=== PATIENT | female | born 1985 | race Caucasian/White ===

== ENCOUNTER 2018-04-26 01:12 | Inpatient (IN) ==
[2018-04-26 01:35] LABS: Basophils % 0.4 %; Eosinophils # 0.1 K/mcL (0.0-0.6); Eosinophils % 1.4 %; Hematocrit 44.7 % (35.3-44.9); Hemoglobin 15.4 g/dL (11.5-15.4); Immature Granulocytes % 0.1 % (0-4); Lymphocytes # 3.2 K/mcL (0.6-4.6); Mean Corpuscular HGB Conc 34.5 g/dL (31.6-35.5); Mean Corpuscular Hemoglobin 31.3 pg (28.0-33.3); Mean Corpuscular Volume 90.9 fL (83.0-100.0); Mean Platelet Volume 9.2 fL (9.4-12.4); Monocytes # 0.8 K/mcL (0.0-1.3); Monocytes % 8.5 %; Platelet Count 275 K/mcL (140-400); Red Blood Count 4.92 M/mcL (3.82-4.97); Red Cell Distribution Width 12.2 % (11.5-14.5); Segmented Neutrophils % 54.6 %
[2018-04-26 01:55] LABS: Acetaminophen < 10 mcg/mL (10-20); BUN/Creatinine Ratio 16 (6-26); Blood Urea Nitrogen 14 mg/dL (6-20); Calcium 9.8 mg/dL (8.6-10.3); Carbon Dioxide 25 mEq/L (23-29); Chloride 110 mEq/L (98-107); Ethanol < 10 mg/dL (Less than 10); Glucose 143 mg/dL (70-105); Osmolality,Calculated 297 (280-300); Potassium 3.7 mEq/L (3.5-5.1); Salicylate < 2.5 mg/dL (15.0-30.0); Sodium 142 mEq/L (136-145); eGFR For African Americans > 60 (> 60); eGFR For Non-African Americans > 60 (> 60)
[2018-04-26 01:58] LABS: Bilirubin,Urine Negative (Negative); Blood,Urine Large (Negative); Clarity,Urine Clear (Clear); Color,Urine Yellow (Yellow); Glucose,Urine (UA) Normal (Normal); Ketones,Urine Negative (Negative); Leukocyte Esterase,Urine Small (Negative); Nitrite,Urine Negative (Negative); PH,Urine 5.5 pH Units (5.0-8.0); Protein,Urine Trace mg/dL (Neg-Trace); Specific Gravity,Urine 1.029 (1.010-1.025); Urobilinogen,Urine Normal (Normal)
[2018-04-26 02:00] LABS: Bacteria,Urine None Seen per hpf (None-Few); Hyaline Casts,Urine None Seen per lpf (None-Few); RBC,Urine 30-50 per hpf (0-3); Squamous Epithelial Cell,Urine Many per lpf (None-Few)
[2018-04-26] MEDS ORDERED: clonazePAM 0.5 MG TABLET PO ONE (02:05)
--- NOTE | 2018-04-26 02:11 | Emergency Department Note ---
Disposition Clinical Impression: Acute anxiety Depression Qualifiers: Depression Type: other depression Qualified Code(s): F32.89 - Other specified depressive episodes Disposition: Admitted As Inpatient Condition: Fair Psych HPI - General Chief Complaint: ED Psychiatric Symptoms Stated Complaint: SI Time Seen by Provider: 04/26/18 01:15 Source: patient, EMS Mode of arrival: EMS Limitations: no limitations Nursing Notes Reviewed: Yes Vital Signs Reviewed: Yes - History of Present Illness Pt complaint: suicidal ideation, feels depressed, anxiety If medical clearance, reason: psychiatric condition Onset (ago): day(s) Duration: getting worse History of similar episodes: Yes Improves with: none Worsens with: none Context: recent drug abuse, significant life stressor Alleged intoxication: No Associated Psychiatric Symptoms: depression, suicidal ideation, racing thoughts , anxiety Associated symptoms: Denies: confusion, headache, shortness of breath, nausea, vomiting, syncope, insomnia Traumatic symptoms: denies traumatic injury Treatments prior to arrival: none Self harm or harm to others: admits thoughts of self harm, denies having a plan - Related Data Home Medications Medication Instructions Recorded Confirmed ALPRAZolam [Xanax 1 MG Tablet] 1 mg PO QID 04/26/18 04/26/18 Amitriptyline [Elavil] 50 mg PO HS 04/26/18 04/26/18 Previous Rx's Medication Instructions Recorded Gabapentin [Neurontin] 300 mg PO TID #60 capsule 04/18/16 Allergies Allergy/AdvReac Type Severity Reaction Status Date / Time ketorolac [From Toradol] Allergy Shakiness Verified 08/16/17 19:00 cephalexin [From Keflex] AdvReac Nausea Verified 08/16/17 19:00 clavulanic acid AdvReac Vomiting Verified 08/16/17 19:00 [From Augmentin] sulfamethoxazole AdvReac Hives Verified 08/16/17 19:00 [From Bactrim] trimethoprim [From Bactrim] AdvReac Hives Verified 08/16/17 19:00 All systems ED: reviewed and negative except as stated. Review of Systems: As Per HPI Constitutional: Denies: fever, chills, weakness, weight change, night sweats Eyes: Denies: vision change Cardiovascular: Denies: chest pain, palpitations Respiratory: Denies: cough, dyspnea, wheezes Gastrointestinal: Denies: abdominal pain, nausea, vomiting Genitourinary: Denies: dysuria Musculoskeletal: Denies: back pain, neck pain, joint swelling, arthralgia, myalgia Integumentary: Denies: rash, pruritus Neurological: Denies: headache, weakness, numbness, paresthesias, confusion, abnormal gait, vertigo Psychiatric: Reports: as per HPI, anxiety, depression, suicidal thoughts Hematological/Lymphatic: Denies: easy bleeding, easy bruising Past Medical History - Past Medical History Attestation: Yes The following information was validated with the patient. Source: patient Medical history: Reports: kidney stones, migraine, other Psychiatric history: Reports: anxiety, depression, PTSD RIGGER THIRD history: Reports: bilateral tubal ligation LMP comments: current - Social History Smoking Status: Current every day smoker Smokeless Tobacco Status: No Alcohol use: Reports: occasionally Drug use: Reports: none Physical Exam - General Limitations: no limitations General appearance: alert, in no apparent distress, anxious - Head Head exam: atraumatic, normocephalic, normal inspection - Eye Eye exam: Present: normal appearance, PERRL. Absent: scleral icterus, conjunctival injection, nystagmus, miosis, mydriasis, periorbital swelling - ENT ENT exam: normal oropharynx, mucous membranes moist - Neck Neck exam: Present: normal inspection, full ROM, trachea midline. Absent: tenderness, meningismus, lymphadenopathy - Chest Chest inspection: Present: normal inspection - Respiratory Respiratory exam: Present: normal lung sounds bilaterally. Absent: respiratory distress, wheezes, stridor - Cardiovascular Cardiovascular exam: Present: regular rate, normal rhythm, normal heart sounds - Extremities Exam Extremities exam: Present: normal inspection, full ROM, normal capillary refill - Neurological Exam Neurological exam: Present: alert, oriented X3, CN II-XII intact, normal gait - Psychiatric Psychiatric exam: Present: normal affect, normal mood - Skin Skin exam: Present: warm, dry, intact, normal color Course Course Narrative: [facility] anxiety, depression and suicidal ideation. She has had several significant life stressors lately. She also recently relapsed and failed a drug test which further added to her anxiety and depression. She has been clean for over a week. She has no physical complaints at this time. She appears anxious and is tearful. She is afebrile, a and O 3, able to provide history and cooperative with the exam. Patient has been medically cleared for psychiatric evaluation. She has been evaluated by the one a nurse. The nurse consulted with the psychiatrist. They feel that the patient will need to be admitted for further evaluation and treatment. Vital Signs Temperature 98.1 F 04/26/18 01:17 Pulse Rate 100 04/26/18 01:17 Respiratory Rate 22 04/26/18 01:17 Blood Pressure 138/83 04/26/18 01:17 O2 Sat by Pulse Oximetry 95 04/26/18 01:17 Temperature 98.0 F 04/26/18 05:39 Pulse Rate 78 04/26/18 05:39 Respiratory Rate 16 04/26/18 05:39 Blood Pressure 102/72 04/26/18 05:39 O2 Sat by Pulse Oximetry 95 04/26/18 01:17 Oxygen Delivery Oxygen Delivery Room Air Psych - Lab Data Result diagrams: 04/26/18 01:25 04/26/18 01:25 Lab Results 04/26/18 04/26/18 04/26/18 Range/Units 01:25 01:25 01:50 WBC 9.2 (4.3-11.1) K/mcL RBC 4.92 (3.82-4.97) M/mcL Hgb 15.4 (11.5-15.4) g/dL Hct 44.7 (35.3-44.9) % MCV 90.9 (83.0-100.0) fL MCH 31.3 (28.0-33.3) pg MCHC 34.5 (31.6-35.5) g/dL RDW 12.2 (11.5-14.5) % Plt Count 275 (140-400) K/mcL MPV 9.2 L (9.4-12.4) fL Immature Gran % 0.1 (0-4) % Seg Neutrophils % 54.6 % Lymphocytes % 35.0 % Monocytes % 8.5 % Eosinophils % 1.4 % Basophils % 0.4 % Neutrophils # 5.0 (1.6-8.9) K/mcL Lymphocytes # 3.2 (0.6-4.6) K/mcL Monocytes # 0.8 (0.0-1.3) K/mcL Eosinophils # 0.1 (0.0-0.6) K/mcL Basophils # 0.0 (0.0-0.2) K/mcL Sodium 142 (136-145) mEq/L Potassium 3.7 (3.5-5.1) mEq/L Chloride 110 H (98-107) mEq/L Carbon Dioxide 25 (23-29) mEq/L BUN 14 (6-20) mg/dL Creatinine 0.89 (0.60-1.20) mg/dL Est GFR ( Amer) > 60 (> 60) Est GFR (Non-Af Amer) > 60 (> 60) BUN/Creatinine Ratio 16 (6-26) Glucose 143 H (70-105) mg/dL Calculated Osmolality 297 (280-300) Calcium 9.8 (8.6-10.3) mg/dL Urine Color Yellow (Yellow) Urine Clarity Clear (Clear) Urine pH 5.5 (5.0-8.0) pH Units Ur Specific [place] 1.029 H (1.010-1.025) Urine Protein Trace (Neg-Trace) mg/dL Urine Glucose (UA) Normal (Normal) mg/dL Urine Ketones Negative (Negative) mg/dL Urine Blood Large H (Negative) Urine Nitrite Negative (Negative) Urine Bilirubin Negative (Negative) Urine Urobilinogen Normal (Normal) mg/dL Ur Leukocyte Esterase Small H (Negative) Urine Microscopic RBC 30-50 H (0-3) per hpf Urine Microscopic WBC 5-15 H (0-3) per hpf Ur Squamous Epith Cells Many H (None-Few) per lpf Urine Bacteria None Seen (None-Few) per hpf Hyaline Casts None Seen (None-Few) per lpf Urine Test (Negative) Salicylates < 2.5 L (15.0-30.0) mg/dL Urine Opiates Screen (Hmdiia=226) ng/mL Acetaminophen < 10 L (10-20) mcg/mL Ur Barbiturates Screen (Snrigq=432) ng/mL Ur Phencyclidine Scrn (Cutoff=25) ng/mL Ur Amphetamines Screen (Pchokq=8421) ng/mL U Benzodiazepines Scrn (Erxdgj=424) ng/mL Urine Cocaine Screen (Cutoff= 300) ng/mL U Marijuana (THC) Screen (Cutoff = 50) ng/mL Ur Drug Screen Interp Ethyl Alcohol < 10 (Less than 10) mg/dL 04/26/18 04/26/18 Range/Units 01:50 01:50 WBC (4.3-11.1) K/mcL RBC (3.82-4.97) M/mcL Hgb (11.5-15.4) g/dL Hct (35.3-44.9) % MCV (83.0-100.0) fL MCH (28.0-33.3) pg MCHC (31.6-35.5) g/dL RDW (11.5-14.5) % Plt Count (140-400) K/mcL MPV (9.4-12.4) fL Immature Gran % (0-4) % Seg Neutrophils % % Lymphocytes % % Monocytes % % Eosinophils % % Basophils % % Neutrophils # (1.6-8.9) K/mcL Lymphocytes # (0.6-4.6) K/mcL Monocytes # (0.0-1.3) K/mcL Eosinophils # (0.0-0.6) K/mcL Basophils # (0.0-0.2) K/mcL Sodium (136-145) mEq/L Potassium (3.5-5.1) mEq/L Chloride (98-107) mEq/L Carbon Dioxide (23-29) mEq/L BUN (6-20) mg/dL Creatinine (0.60-1.20) mg/dL Est GFR ( Amer) (> 60) Est GFR (Non-Af Amer) (> 60) BUN/Creatinine Ratio (6-26) Glucose (70-105) mg/dL Calculated Osmolality (280-300) Calcium (8.6-10.3) mg/dL Urine Color (Yellow) Urine Clarity (Clear) Urine pH (5.0-8.0) pH Units Ur Specific [place] (1.010-1.025) Urine Protein (Neg-Trace) mg/dL Urine Glucose (UA) (Normal) mg/dL Urine Ketones (Negative) mg/dL Urine Blood (Negative) Urine Nitrite (Negative) Urine Bilirubin (Negative) Urine Urobilinogen (Normal) mg/dL Ur Leukocyte Esterase (Negative) Urine Microscopic RBC (0-3) per hpf Urine Microscopic WBC (0-3) per hpf Ur Squamous Epith Cells (None-Few) per lpf Urine Bacteria (None-Few) per hpf Hyaline Casts (None-Few) per lpf Urine Test Negative (Negative) Salicylates (15.0-30.0) mg/dL Urine Opiates Screen Negative (Cwyjtj=884) ng/mL Acetaminophen (10-20) mcg/mL Ur Barbiturates Screen Positive H (Pldjvx=052) ng/mL Ur Phencyclidine Scrn Negative (Cutoff=25) ng/mL Ur Amphetamines Screen Negative (Guyxhc=8652) ng/mL U Benzodiazepines Scrn Positive H (Sefuos=704) ng/mL Urine Cocaine Screen Negative (Cutoff= 300) ng/mL U Marijuana (THC) Screen Negative (Cutoff = 50) ng/mL Ur Drug Screen Interp See Below Ethyl Alcohol (Less than 10) mg/dL Psychiatric Medical Clearance - Medical Clearance Checklist Does the patient have a NEW psychiatric condition?: No Any abnormalities indicating possible medical illness?: No Any history of medical issues?: No Medical History: No Social History Section defined Any abnormal vital signs prior to transfer?: No Current Vitals: Last Vital Signs Temp 98.0 F 04/26/18 05:39 Pulse 78 04/26/18 05:39 Resp 16 04/26/18 05:39 BP 102/72 04/26/18 05:39 Pulse Ox 95 04/26/18 01:17 Is the patient intoxicated or cognitively impaired?: No Psychiatric Lab Panel: Drug Levels and Toxicity 04/26/18 04/26/18 01:25 01:50 Urine Opiates Screen Negative Acetaminophen < 10 L Ur Barbiturates Screen Positive H Ur Phencyclidine Scrn Negative Ur Amphetamines Screen Negative U Benzodiazepines Scrn Positive H Urine Cocaine Screen Negative U Marijuana (THC) Screen Negative Ethyl Alcohol < 10 Any abnormalities on the physical exam?: No Any abnormal labs?: No Abnormal Labs: Abnormal lab results MPV 9.2 fL (9.4-12.4) L 04/26/18 01:25 Chloride 110 mEq/L (98-107) H 04/26/18 01:25 Glucose 143 mg/dL (70-105) H 04/26/18 01:25 Ur Specific [place] 1.029 (1.010-1.025) H 04/26/18 01:50 Urine Blood Large (Negative) H 04/26/18 01:50 Ur Leukocyte Esterase Small (Negative) H 04/26/18 01:50 Urine Microscopic RBC 30-50 per hpf (0-3) H 04/26/18 01:50 Urine Microscopic WBC 5-15 per hpf (0-3) H 04/26/18 01:50 Ur Squamous Epith Cells Many per lpf (None-Few) H 04/26/18 01:50 Salicylates < 2.5 mg/dL (15.0-30.0) L 04/26/18 01:25 Acetaminophen < 10 mcg/mL (10-20) L 04/26/18 01:25 Ur Barbiturates Screen Positive ng/mL (Srdbwb=933) H 04/26/18 01:50 U Benzodiazepines Scrn Positive ng/mL (Cwotri=044) H 04/26/18 01:50 Does the patient require durable medical equiptment?: No Is the patient ambulatory?: Yes Is the patient a fall risk?: No Has the patient been medically cleared?: Yes Any acute medical condition require Tx prior to transfer?: No Attestation Statement - Attestation Attestation: I examined this patient and my medical decision-making was reviewed with the Resident Physician. I agree with the documented findings, disposition and treatment plan as described except to the extent set forth below. Findings consistent with SI. WIll admit to [facility] for psychiatric evaluation.
[2018-04-26 02:21] LABS: Amphetamine Screen,Urine Negative ng/mL (Cutoff=1000); Barbiturate Screen,Urine Positive ng/mL (Cutoff=200); Benzodiazepines Screen,Urine Positive ng/mL (Cutoff=200); Cannabinoid Screen,Urine Negative ng/mL (Cutoff = 50); Cocaine Screen,Urine Negative ng/mL (Cutoff= 300); Opiate Screen,Urine Negative ng/mL (Cutoff=300); Phencyclidine Screen,Urine Negative ng/mL (Cutoff=25)
[2018-04-26] MEDS ORDERED: *HR* LORazepam 2 MG/ML VIAL IM PRN (04:40)
[2018-04-26] MEDS ORDERED: MOM Conc 10 ML UD.LIQ PO PRN (04:40)
[2018-04-26] MEDS ORDERED: Acetaminophen 325 MG TABLET PO PRN (04:40)
[2018-04-26] MEDS ORDERED: traZODone 50 MG TABLET PO PRN (04:40)
[2018-04-26] MEDS ORDERED: Haloperidol Lactate 5 MG/ML VIAL IM PRN (04:40)
[2018-04-26] MEDS ORDERED: Mag Hydrox/Al Hydrox/Simeth 30 ML UDC PO PRN (04:40)
[2018-04-26] MEDS ORDERED: *HR* LORazepam 1 MG TABLET PO PRN (04:40)
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
[2018-04-26] MEDS: Gabapentin 300 MG CAPSULE PO SCH ×2 (15:54→20:48)
[2018-04-26] MEDS ORDERED: ALPRAZolam 1 MG TABLET PO ONE (18:10)
[2018-04-26] MEDS: Acetaminophen/Butalbital/CaffeineTABLET PO PRN (18:39)
[2018-04-26] MEDS ORDERED: Mirtazapine 15 MG TABLET PO SCH (21:00)
[2018-04-26] MEDS: hydrOXYzine pamoate 25 MG CAPSULE PO PRN (21:03)
[2018-04-27] MEDS ORDERED: Nicotine 2 MG GUM BC PRN (06:25)
[2018-04-27] MEDS: hydrOXYzine pamoate 25 MG CAPSULE PO PRN (08:32)
[2018-04-27] MEDS: Gabapentin 300 MG CAPSULE PO SCH (08:32)
[2018-04-27 10:09] VITALS: BP 114/76
[2018-04-27] MEDS: Acetaminophen/Butalbital/CaffeineTABLET PO PRN (10:53)
--- NOTE | 2018-04-27 12:55 | Discharge Summary ---
Date of Encounter: 04/27/18 Time of Encounter: 13:00 Diagnosis - Discharge Diagnosis (1) Major depressive disorder, recurrent severe without psychotic features Status: Acute (2) Parent/child conflict Status: Acute Medications - Discharge Medications Gabapentin [Neurontin] 300 mg PO TID #60 capsule 04/18/16 [Rx] Amitriptyline HCl 100 mg PO HS 04/26/18 [History] Acetaminophen/Butalbital/Caffe [Fioricet] 2 each PO Q6HR PRN tablet 04/27/18 [ Rx] Mirtazapine [Remeron] 7.5 mg PO HS tablet 04/27/18 [Rx] 3 Allergy/AdvReac Type Severity Reaction Status Date / Time cephalexin [From Keflex] AdvReac Nausea Verified 04/26/18 12:12 clavulanic acid AdvReac Vomiting Verified 04/26/18 12:12 [From Augmentin] ketorolac [From Toradol] AdvReac Shakiness Verified 04/26/18 12:12 sulfamethoxazole AdvReac Hives Verified 04/26/18 12:12 [From Bactrim] trimethoprim [From Bactrim] AdvReac Hives Verified 04/26/18 12:12 Provider Date of admission: 04/26/18 04:36 Primary care physician: PCP NONE Discharging clinician: Mitchel Navarro Psychiatry Exam - Constitutional Vitals: Temp Pulse Resp BP Pulse Ox 98.1 F 64 18 114/76 95 04/27/18 09:00 04/27/18 09:00 04/27/18 09:00 04/27/18 09:00 04/26/18 01:17 General appearance: age & developmentally appropriate, well-groomed, well- nourished - Musculoskeletal Gait: normal Station: relaxed Strength & Tone: normal for patient - Psychiatric Patient Orientation: Yes Person, Yes Time, Yes Place Level of alertness: Alert Behavior: calm, cooperative Psychomotor activity: Normal Eye Contact: Maintains Eye Contact Mood Description: Euthymic/stable Affect description: congruent with mood, full range Speech Volume: Normal Speech pattern: normal rate, normal rhythm, normal tone, fluent, spontaneous Language & Vocabulary: consistent with education Thought Process: Linear, Goal Oriented Thought Content: No Suicidal ideation, No Homicidal ideation, No Overt delusions Perceptual Disturbances: No Auditory hallucinations, No Visual hallucinations Attention Span Ability: Capable of Focused Attention Memory Description: Grossly Intact Patient Reliability: Reliable Historian Fund of knowledge: Yes abstraction ability, Yes aware of current events Intelligence Estimate: Average Judgment: Limited Insight: Minimal Hospital Course Hospital course: Ms. Combs is a 32 year old female Patient was admitted for wishes. She denied suicidal ideation. She became very distressed over parent-child conflict. Chief: Complaint I was not suicidal but I was very distressed. History of present illness: The patient had been treated on an outpatient basis for major depression. This included intensive psychotherapy group therapy and monthly management. The patient also has provided urine drug screens to her environmental protection officer. The patient is on probation for the past 2 years regarding possession. At that time she was holding onto Suboxone and some other controlled substances. The patient is currently free of suicidal ideation. She notes no particular psychosis. She was seen and assessed and an effort was made to reduce withdrawal symptoms associated with Xanax. State pharmacy report was checked and reveals that she had 121 mg Xanax tablets with instructions to take one 4 times a day however no refills were given and the patient reports that depending on the results. Drug screen she may get the next month supply. The patient was on amitriptyline and gabapentin and asked for increases both on the day of admission and the day of discharge. The patient was offered a variety of choices. The patient was offered a seven-day supply of Xanax. She declined this offer The patient was offered no Xanax and to talk to her primary prescriber. She declined this. The patient was offered a taper of clonazepam in which she could try to switch over to this medicine or taper off it. Was important to note that the admitting physician of the discharging physician did not feel that Xanax 1 mg 4 times a day would be helpful for her treatment. Therefore a tapering dose was recommended clonazepam 1 mg in a rapid taper was prescribed with the total number of 13 pills nonetheless the patient has a resources and access to get back to her original prescriber to review what would be in her best interest as a treatment plan. Patient did tolerate 7.5 mg of mirtazapine and asked to have this increased to 15 mg. These were prescribed at by a paper prescription so that she could pick them up in the hospital pharmacy. The patient has contacted her environmental protection officer to discuss this and feels that she can do well on an outpatient basis. She reports that she has been compliant with her treatment and does not want to change her outpatient treatment. She was discharged to home Time spent discussing smoking cessation with patient: 3 to 10 minutes Does patient wish to continue nicotine replacement upon disc: No - Time Spent with Patient Total time spent providing and/or coordinating discharge services: Less than 30 minutes Assessment and Plan - Patient/Caregiver Discharge Instructions Activity: increase activity as tolerated Diet: regular diet Additional Instructions: Patient states she will follow-up with drug court services at [facility] and [facility] after meeting with her environmental protection officer, which patient states is required to do before being seen there again. - Follow up Plan Follow up with: [facility] [Outside] - 04/30/18 6:00 pm (The above appointment is with Amelia for mental health counseling. Please bring photo ID and insurance card.) Delfina Nelson [Advanced Practice Nurse] - 05/05/18 12:00 pm (The above apointment is with Delfina Nelson for primary care /medications. Please bring photo ID and insurance card.) Functional capacity at discharge: independent ambulation Overall status at discharge: Stable Disposition: Home, Self-Care Quality - Multiple Antipsychotics Patient discharged on 2 or more antipsychotic medications: No Procedures - Procedures Procedures: Medication Management, Crisis Stabilization, Supportive Therapy, Group Therapy, Psychoeducational Therapy
== END 2018-04-27 13:30 | disposition home or self-care (01) | DRG 885 ==
LOC: EMEROO 01:12 → SUATTDRO 04:36 → 1ANU 04:36
PROVIDERS: ADMIT Psychiatry & Neurology Psychiatry; ATTEND Psychiatry & Neurology Forensic Psychiatry